=== PATIENT | female | born 1960 | race Hispanic/Latino ===

== ENCOUNTER 2025-09-23 05:39 | Day surgery (SDC) | payer OTHER ==
[~2025-09-23] VITALS: Ht 167.6 cm; Wt 72.1 kg
[2025-09-23] VITALS (10 sets, daily range): BP systolic 112–139; BP diastolic 56–67; PULSE 69–78; RESP 14–17; TEMP 97.2–97.6
[2025-09-23] MEDS: 0.9%NACL 1000ML 1,000 ML IV ONE (06:33)
[2025-09-23] MEDS ORDERED: LIDOCAINE HCL 1% 20 ML VIAL ONE (07:33)
--- NOTE | 2025-09-23 09:12 | NUR ---
Full and complete discharge instructions given to Patient and Family both verbally and in writing. Tolerated fluids and voided in bathroom. PIV removed with catheter tip intact. W/C to POV with Family to home.
== END 2025-09-23 09:13 | disposition home or self-care (01) ==
LOC: DAH 05:39
PROVIDERS: ATTEND Internal Medicine Gastroenterology
DX: R19.7 Diarrhea, unspecified (principal); D12.5 Benign neoplasm of sigmoid colon; D12.3 Benign neoplasm of transverse colon; K29.50 Unspecified chronic gastritis without bleeding; K57.30 Diverticulosis of large intestine without perforation or abscess without bleeding; K44.9 Diaphragmatic hernia without obstruction or gangrene; K21.9 Gastro-esophageal reflux disease without esophagitis; I10 Essential (primary) hypertension; M19.90 Unspecified osteoarthritis, unspecified site; Z90.49 Acquired absence of other specified parts of digestive tract; Z98.891 History of uterine scar from previous surgery; Z86.0100 Personal history of colon polyps, unspecified; Z80.0 Family history of malignant neoplasm of digestive organs; Z91.041 Radiographic dye allergy status; Z79.899 Other long term (current) drug therapy; Z98.890 Other specified postprocedural states
CPT/HCPCS: 43239; 45380; 45385; J2003; J7030 ×2; J1720; J2704; A4620; A4215 ×2; A4223; A4657; A7002; A4222; A4221; A4663; A4606; J3490